=== PATIENT | female | born 1945 | race Caucasian/White ===

== ENCOUNTER → 2016-05-22 | Outpatient (CLI) | payer OTHER ==
[~2016-05-22] MED LIST: AMR2 PO; ATOR-24 PO; BYTI10 SQ; DLCSR180 PO; GLC500 PO; INDA1TAB3 PO; SYNUNK; XNX25 PO
--- NOTE | 2016-05-27 10:10 | CODING QUERY MEDICAL NECESSITY ---
SUPPORTING DIAGNOSIS NEEDED A supporting diagnosis is required for the test/procedure performed on this patient in order for us to be reimbursed by the patient's insurance. Please provide a supporting diagnosis for the following test/procedure listed below next to the test name along with your signature. *If there is no additional diagnosis for this patient that would support the following test/procedure please document that below next to the test/procedure. Test(s)/Procedure(s) that require a supporting diagnosis: DOS 05/22 * Hba1c DIAGNOSIS: Provider Signature: Date: Thank you Citlali Chew Health Information Management Once completed, please kindly fax back to [phone] For questions please call [phone]
== END | disposition home or self-care (01) ==
LOC: C.LAB1850 09:35
PROVIDERS: ATTEND Internal Medicine
DX: E78.00 Pure hypercholesterolemia, unspecified (principal); E11.9 Type 2 diabetes mellitus without complications

== ENCOUNTER → 2016-07-23 | Outpatient (CLI) | payer OTHER ==
[2016-07-23 09:38] LABS: BASO % 0.5 %; BASO ABS # 0.03 K/uL (0-0.2); COMPLETE YES; EOS % 3.4 %; LYMPH % 30.7 %; LYMPH ABS # 1.69 K/uL (1.2-3.4); MEAN CORPUSCULAR HEMOGLOBIN 29.7 pg (25-34); MEAN CORPUSCULAR HGB CONC 33.3 g/dl (32-36); MEAN PLATELET VOLUME 10.8 fL (7.4-10.4); MONO % 9.4 %; PLATELET COUNT 261 K/uL (130-400); RED BLOOD COUNT 4.72 M/uL (4.2-5.4); WHITE BLOOD COUNT 5.51 K/uL (4.8-10.8)
[2016-07-23 09:57] LABS: ALT/SGPT 20 U/L (12-78); AST/SGOT 19 U/L (15-37); BLOOD UREA NITROGEN 12 mg/dl (7-18); BUN/CREATININE RATIO 15.9 (10-20); CALCIUM 9.8 mg/dl (8.5-10.1); CARBON DIOXIDE 29 mmol/L (21-32); CHLORIDE 107 mmol/L (98-107); CHOLESTEROL 118 mg/dl (0-200); CREATININE 0.76 mg/dl (0.60-1.20); GLUCOSE 138 mg/dl (70-99); POTASSIUM 3.7 mmol/L (3.5-5.1); SODIUM 142 mmol/L (136-145)
[2016-07-23 09:58] LABS: ESTIMATED AVERAGE GLUCOSE 148 mg/dl; HA1C FLAG Normal (Normal)
[2016-07-23 10:07] LABS: HDL CHOLESTEROL 40 mg/dl; LDL CHOLESTEROL CALCULATED 46 mg/dl; TRIGLYCERIDES 158 mg/dl (0-150); VERY LOW DENSITY LIPOPROT CALC 32 mg/dl
[2016-07-23 10:23] LABS: RATIO 10.1 mcg/mg (0-30.0)
--- NOTE | 2016-07-30 08:31 | CODING QUERY MEDICAL NECESSITY ---
SUPPORTING DIAGNOSIS NEEDED A supporting diagnosis is required for the test/procedure performed on this patient in order for us to be reimbursed by the patient's insurance. Please provide a supporting diagnosis for the following test/procedure listed below next to the test name along with your signature. *If there is no additional diagnosis for this patient that would support the following test/procedure please document that below next to the test/procedure. Test(s)/Procedure(s) that require a supporting diagnosis: * GLYCATED HEMOGLOBIN DIAGNOSIS: * DOS: 07/23/16 Provider Signature: Date: Thank you Verónica Ruiz Health Information Management Once completed, please kindly fax back to [phone] For questions please call [phone]
== END | disposition home or self-care (01) ==
LOC: C.LAB1850 08:16
PROVIDERS: ATTEND Internal Medicine
DX: E78.00 Pure hypercholesterolemia, unspecified (principal); E11.9 Type 2 diabetes mellitus without complications

== ENCOUNTER → 2016-10-30 | Outpatient (CLI) | payer OTHER ==
[2016-10-30 14:01] LABS: ESTIMATED AVERAGE GLUCOSE 157 mg/dl; HA1C FLAG Normal (Normal)
== END | disposition home or self-care (01) ==
LOC: C.LAB1850 11:36
PROVIDERS: ATTEND Internal Medicine
DX: E11.9 Type 2 diabetes mellitus without complications (principal)

== ENCOUNTER → 2017-04-29 | Outpatient (CLI) | payer OTHER ==
[2017-04-29 09:36] LABS: BASO % 0.5 %; BASO ABS # 0.03 K/uL (0-0.2); EOS % 4.5 %; EOS ABS # 0.28 K/uL (0-0.5); HEMATOCRIT 43.4 % (37-47); HEMOGLOBIN 14.3 g/dL (12.0-16.0); IG# 0.02 K/uL (0.00-0.02); LYMPH % 32.6 %; LYMPH ABS # 2.03 K/uL (1.2-3.4); MEAN CORPUSCULAR HGB CONC 32.9 g/dl (32-36); MEAN PLATELET VOLUME 11.2 fL (7.4-10.4); MONO ABS # 0.56 K/uL (0.11-0.59); NEUT % 53.1 %; PLATELET COUNT 246 K/uL (130-400); RED CELL DISTRIBUTION WIDTH CV 13.2 % (11.5-14.5); RED CELL DISTRIBUTION WIDTH SD 43.7 fL (36.4-46.3); WHITE BLOOD COUNT 6.22 K/uL (4.8-10.8)
[2017-04-29 09:48] LABS: HEMOGLOBIN A1C 10.4 % (4.5-5.6)
[2017-04-29 10:07] LABS: CREATININE RANDOM URINE 61.9 mg/dl
[2017-04-29 10:09] LABS: ALT/SGPT 19 U/L (12-78); AST/SGOT 11 U/L (15-37); BLOOD UREA NITROGEN 15 mg/dl (7-18); CALCIUM 9.1 mg/dl (8.5-10.1); CARBON DIOXIDE 28 mmol/L (21-32); CREATININE 0.76 mg/dl (0.60-1.20); GLUCOSE 195 mg/dl (70-99); POTASSIUM 3.4 mmol/L (3.5-5.1); SODIUM 139 mmol/L (136-145)
[2017-04-29 10:21] LABS: CHOLESTEROL 125 mg/dl (0-200); LDL CHOLESTEROL CALCULATED 40 mg/dl
== END | disposition home or self-care (01) ==
LOC: C.LAB1850 08:32
PROVIDERS: ATTEND Internal Medicine
DX: E11.9 Type 2 diabetes mellitus without complications (principal)

== ENCOUNTER → 2017-08-19 | Outpatient (CLI) | payer OTHER ==
[2017-08-19 12:48] LABS: HEMOGLOBIN A1C 9.7 % (4.5-5.6)
== END | disposition home or self-care (01) ==
LOC: C.LAB1850 10:16
PROVIDERS: ATTEND Internal Medicine
DX: E11.9 Type 2 diabetes mellitus without complications (principal)

== ENCOUNTER 2018-06-03 09:07 | Observation (INO) ==
[2018-06-03] MEDS ORDERED: SODIUM CHLORIDE 0.9% 1000ML 1,000 ML IV SCH (09:30)
[2018-06-03 09:40] LABS: Basophils # (auto) 0.02 K/uL (0-0.2); Basophils % (auto) 0.2 %; Eosinophils % (auto) 7.5 %; Hematocrit (blood only) 45.3 % (37-47); Hemoglobin 15.5 g/dL (12.0-16.0); Immature Granulocytes # (auto) 0.03 K/uL (0.00-0.02); Immature Granulocytes % (auto) 0.3 %; Lymphocytes # (auto) 2.24 K/uL (1.2-3.4); Lymphocytes % (auto) 23.9 %; Mean Corpuscular Hgb Conc 34.2 g/dL (32-36); Mean Corpuscular Volume 89.3 fL (80-100); Mean Platelet Volume 11.1 fL (7.4-10.4); Monocytes # (auto) 0.55 K/uL (0.11-0.59); Monocytes % (auto) 5.9 %; Neutrophils # (auto) 5.85 K/uL (1.4-6.5); Neutrophils % (auto) 62.2 %; Platelet Count 282 K/uL (130-400); RDW Coefficient of Variation 13.2 % (11.5-14.5); Red Blood Count 5.07 M/uL (4.2-5.4); White Blood Count 9.39 K/uL (4.8-10.8)
--- NOTE | 2018-06-03 09:40 | XRay Report ---
XR chest 1V portable CLINICAL HISTORY: Epigastric pain. COMPARISON STUDY: Chest radiograph June 18, 2009. FINDINGS: No lucency is identified under the hemidiaphragms to suggest pneumoperitoneum on this exam. An old fracture of the right sixth rib is noted. Lung volumes are slightly diminished. This is uncha nged. There is no consolidation or evidence for pulmonary edema. Cardiomediastinal silhouette is unre markable. IMPRESSION: No acute cardiopulmonary findings. Electronically signed by: Ky Madden M.D. 06/03/2018 9:39 AM
[2018-06-03 09:57] LABS: Alanine Aminotransferase 17 U/L (12-78); Albumin Level 3.8 gm/dl (3.4-5.0); Aspartate Aminotransferase 16 U/L (15-37); Blood Urea Nitrogen 17 mg/dl (7-18); Calcium 9.7 mg/dl (8.5-10.1); Carbon Dioxide 26 mmol/L (21-32); Chloride 102 mmol/L (98-107); Creatinine Clr Calc Pharmacy 57.5 ml/min; Est GFR (African American) 62.3; Est GFR (Non-African American) 53.8; Glucose 230 mg/dl (70-99); Potassium 3.2 mmol/L (3.5-5.1); Sodium 138 mmol/L (136-145)
[2018-06-03 10:01] LABS: Alkaline Phosphatase 135 U/L (45-117); Bilirubin,Total 1.1 mg/dl (0.2-1); Globulin 3.8 gm/dl (2.5-4.0); Total Protein 7.6 gm/dl (6.4-8.2); Troponin I < 0.015 ng/ml (0-0.045)
--- NOTE | 2018-06-03 10:48 | Ultrasound Report ---
US gallbladder CLINICAL HISTORY: 72 years-old Female presenting with RUQ pain. TECHNIQUE: Real-time grayscale and limited color Doppler ultrasound imaging of the abdomen limited to the right upper quadrant was performed. COMPARISON: None. FINDINGS: Pancreas: Visualized portions of the pancreatic head and body normal. Liver: Normal echogenicity and echotexture. No sonographic evidence of hepatic mass. Main portal vein patent with normal directional flow. Biliary: No intrahepatic biliary ductal dilatation. Common bile duct measures up to 5 mm in diameter. Gallbladder: Nonshadowing hyperechogenic focus along the gallbladder wall, which is linear/laminar an d measures 10 mm. This is nonmobile. No evidence of gallstones, gallbladder wall thickening, gallblad vera distention, or pericholecystic fluid or inflammatory change. Right kidney: Simple cysts, the largest measuring 2.7 cm. No hydronephrosis. Ascites: None. Other: None. IMPRESSION: 1. No cholelithiasis or biliary ductal dilatation. 2. 10 mm cholesterol polyp or adherent gallbladder sludge. Electronically signed by: Dontae Her M.D. 06/03/2018 10:47 AM
[2018-06-03] MEDS ORDERED: NovoLIN-R INSULIN PER UNIT CHARGE SC STA (11:13)
[2018-06-03 13:10] LABS: Appearance Urine Clear (Clear); Bilirubin Urine Negative (Negative); Color Urine Yellow; Glucose Urine UA Negative (Negative); Ketones Urine Negative (Negative); Leukocyte Esterase Urine Negative (Negative); Nitrite Urine Negative (Negative); Protein Urine Negative (Negative); Specific Gravity Urine 1.011 (1.000-1.030); Urobilinogen Urine Negative (Negative)
[2018-06-03] MEDS ORDERED: cefOXitin 2,000 MG in DEXTROSE 5% 50 ML IV STA (13:44)
[2018-06-03] MEDS ORDERED: MoRPHine SULFATE 4 MG/ML 1 ML CARP\\VIAL IV PRN (13:44)
[2018-06-03] MEDS ORDERED: MoRPHine SULFATE 2 MG/ML CARP IV PRN (13:44)
--- NOTE | 2018-06-03 13:55 | History & Physical Report ---
Date of Service June 03, 2018 Assessment & Plan (1) Biliary colic: The ER physician and I feel patient is having a very biliary colic And likely has chronic cholecystitis. I have discussed with the patient Laparoscopic cholecystectomy with possible open cholecystectomy. Patient does understand potential complications as noted on the consent form. She does wish to proceed History of Present Illness Primary Care Provider: Jarrod Rodriguez MD pt with eipigastric abdominal pain and associated nausea she has had no vomiting She underwent ultrasound which did not show any stone but there are changes which may be Consistent with sludge. He does have right upper quadrant tenderness which is relatively isolated. Her alkaline phosphatase is mildly elevated other LFTs normal Allergies Allergy/AdvReac Type Severity Reaction Status Date / Time No Known Allergies Verified 06/03/18 09:28 Home Medications Home Medications Medication Instructions Recorded Confirmed Type alprazolam 0.25 mg PO TID 06/03/18 06/03/18 History atorvastatin [Lipitor] 40 mg PO PM 06/03/18 06/03/18 History diltiazem HCl 240 mg PO QAM 06/03/18 06/03/18 History glimepiride [Amaryl] 4 mg PO AMPM 06/03/18 06/03/18 History levothyroxine 150 mcg PO QAM 06/03/18 06/03/18 History liraglutide [Victoza 3-Nav] 1 dose SUBCUT DIRECTED 06/03/18 06/03/18 History metformin 1,000 mg PO AMPM 06/03/18 06/03/18 History Past Med/Surg History Medical History Diabetes (Chronic) H/O: hysterectomy (Resolved) Social History Feels Safe at Home: Yes Preferred Language: Kazakh Physical Exam 2 Vital Signs (Past 24 Hours): Last Vital Signs Temp 36.4 C L 06/03/18 09:09 Pulse 66 06/03/18 12:15 Resp 16 06/03/18 12:15 BP 144/74 H 06/03/18 12:15 Pulse Ox 97 06/03/18 12:15 On examination her HEENT exam is grossly normal sclera are anicteric Head is atraumatic neck is supple she is in no respiratory distress or shortness of breath Her heart shows regular rate and rhythm skin is warm and dry Abdomen is soft but she does have upper quadrant tenderness to palpation and also on ultrasound with the probe He does not have any rashes Results & Data Medications Administered Sodium Chloride (Nss 1000ml) 1,000 mls @ 125 mls/hr IV .Q8H NAVJOT Stop: 06/03/18 17:29 Last Admin: 06/03/18 10:03 Dose: 125 mls/hr
--- NOTE | 2018-06-03 15:15 | Anesthesiology Consultation ---
Date of Service June 03, 2018 Assessment & Plan (1) Encounter for pre-operative examination: Chart Review Chart Review: Acceptable Risk for Surgery Consults Requested none NPO Date Last Intake of Fluids: 06/03/18 Time Last Intake of Fluids: 07:30 Date Last Intake of Solids: 06/03/18 Time Last Intake of Solids: 07:30 History Surgery Operation Date: 06/03/18 10:55 Proposed Procedures p Laparoscopic Cholecystectomy - Ludwin Vidal MD, FACS Height/Weight Height: 5 ft 7 in Weight: 90.4 kg Allergies Allergy/AdvReac Type Severity Reaction Status Date / Time No Known Allergies Verified 06/03/18 09:28 Medications Home Medications Medication Instructions Recorded Confirmed Last Taken alprazolam 0.25 mg PO TID 06/03/18 06/03/18 Unknown atorvastatin [Lipitor] 40 mg PO PM 06/03/18 06/03/18 Unknown diltiazem HCl 240 mg PO QAM 06/03/18 06/03/18 Unknown glimepiride [Amaryl] 4 mg PO AMPM 06/03/18 06/03/18 Unknown levothyroxine 150 mcg PO QAM 06/03/18 06/03/18 Unknown liraglutide [Victoza 3-Anv] 1 dose SUBCUT DIRECTED 06/03/18 06/03/18 Unknown metformin 1,000 mg PO AMPM 06/03/18 06/03/18 Unknown Active Medications Generic Name Dose Route Start Last Admin Trade Name Freq PRN Reason Stop Dose Admin Sodium Chloride 1,000 mls @ 125 mls/hr 06/03/18 09:30 06/03/18 10:03 Nss 1000ml IV 06/03/18 17:29 125 mls/hr .Q8H NAVJOT Administration Morphine Sulfate 4 mg 06/03/18 13:44 06/03/18 14:06 Morphine Sulfate IV 06/17/18 13:43 4 mg 3XQ2H PRN Administration Pain Past Medical History Medical History Diabetes (Chronic) H/O: hysterectomy (Resolved) Social History Smoking Status: Never smoker Do You Dip or Chew Tobacco: No Hx Alcohol Use: No Hx Substance Use: No Physical Exam Vital Signs Last Vital Signs Temp 36.7 C 06/03/18 15:12 Pulse 63 06/03/18 15:12 Resp 16 06/03/18 15:12 BP 109/65 06/03/18 15:12 Pulse Ox 95 06/03/18 15:12 Testing Laboratory Results 06/03/18 09:30 06/03/18 09:30 Urine Color Yellow 06/03/18 12:30 Urine Appearance Clear (Clear) 06/03/18 12:30 Urine pH 5.0 (4.5-7.5) 06/03/18 12:30 Ur Specific [place] 1.011 (1.000-1.030) 06/03/18 12:30 Urine Protein Negative (Negative) 06/03/18 12:30 Urine Glucose (UA) Negative (Negative) 06/03/18 12:30 Urine Ketones Negative (Negative) 06/03/18 12:30 Urine Nitrite Negative (Negative) 06/03/18 12:30 Ur Leukocyte Esterase Negative (Negative) 06/03/18 12:30 06/03/18 11:22 POC Glucose 136 H
[2018-06-03] MEDS ORDERED: fentaNYL citrate 100 MCG/2 ML VIAL ONE ×2 (15:16→16:54)
[2018-06-03] MEDS ORDERED: MIDAZOLAM HCL 1 MG/ML 2ML VIAL ONE (15:16)
[2018-06-03] MEDS ORDERED: ePHEDrine sulfate 50 MG/ML AMP IV PRN (15:26)
[2018-06-03] MEDS ORDERED: ONDANSETRON INJ 2 MG/ML 2 ML VIAL IV PRN ×2 (15:26→17:52)
[2018-06-03] MEDS ORDERED: BUPIVACAINE 0.5 % 5 MG/1 ML MPF 30ML VIAL ONE (15:26)
[2018-06-03] MEDS ORDERED: ATROPINE SULFATE 0.1 MG/ML 10ML SYR IV PRN (15:26)
[2018-06-03] MEDS ORDERED: HYDROmorphone INJ 2 MG/ML SYR/VIAL IV PRN (15:26)
[2018-06-03] MEDS ORDERED: KETOROLAC TROMETHAMINE 15 MG/ML VIAL IV PRN (15:26)
--- NOTE | 2018-06-03 15:34 | Emergency Department Note ---
Entered by Mackenzie Breen acting as a scribe for History of Present Illness General Chief complaint: Chest Pain Stated complaint: CHEST AND BACK PAIN Source: patient History of Present Illness Provider complaint: chest pain Onset (ago): week(s) 1 Location: chest Pain Consistency: + intermittent Current Pain Intensity: 0 Quality: + other (pain) Exacerbated By: + eating Associated symptoms: + diaphoresis; no nausea/vomiting (nausea, no vomiting) The patient is a 72 year old female who presents to the Emergency Room with complaints of intermittent chest pain beginning 1 week ago. The patient states that her pain 1 week ago radiated down to her stomach and back. She states that she is nauseous and reports that eating exacerbates her pain. She reports that she was intermittently sweaty but denies vomiting. The patient states that she was drinking coffee 1 week ago when her pain began. She states that last night she ate chicken, peas, and mashed potatoes. She reports that this morning she ate half of a bagel with peanut butter and had the pain again. The patient states that she is diabetic and states that her sugars have been running high lately. She denies having the chest discomfort currently. She reports a history of a stress test and a hysterectomy done in 2009. Home Medications Home Medications Medication Instructions Recorded Confirmed Type alprazolam 0.25 mg PO TID 06/03/18 06/03/18 History atorvastatin [Lipitor] 40 mg PO PM 06/03/18 06/03/18 History diltiazem HCl 240 mg PO QAM 06/03/18 06/03/18 History glimepiride [Amaryl] 4 mg PO AMPM 06/03/18 06/03/18 History levothyroxine 150 mcg PO QAM 06/03/18 06/03/18 History liraglutide 1 dose SUBCUT DIRECTED 06/03/18 06/03/18 History metformin 1,000 mg PO AMPM 06/03/18 06/03/18 History hydrocodone-acetaminophen [[place]] 1 - 2 tab PO Q6H #30 tab 06/04/18 Rx Allergies Allergy/AdvReac Type Severity Reaction Status Date / Time No Known Allergies Verified 06/03/18 09:28 Past Med/Surg History Medical History Diabetes (Chronic) H/O: hysterectomy (Resolved) Social History Current Living Situation: Spouse Other Information That Helps Us Care for You: No Feels Safe at Home: Yes Safety Concerns: Feels Safe At This Time Smoking Status: Never smoker Do You Dip or Chew Tobacco: No Hx Alcohol Use: No Hx Substance Use: No Beliefs That Will Affect Care: None Preferred Language: [place] Review of Systems See HPI for pertinent positives & negatives. and A total of 10 systems reviewed and were otherwise negative Physical Exam Vital Signs Vital Signs - 24 hr 06/03/18 17:00 06/03/18 17:01 06/03/18 17:05 Temperature Temperature Source Pulse Rate 61 59 L 58 L Pulse Rate [Apical] Pulse Rate [Left] Pulse Rhythm [Apical] Pulse Rhythm [Left] Pulse Strength [Apical] Pulse Strength [Left] Respiratory Rate 15 15 13 Respiratory Effort / Characteristics Respiratory Depth Respiratory Pattern Blood Pressure 189/71 H Blood Pressure [Left Arm] Blood Pressure Mean 110 Blood Pressure Mean [Left Arm] Blood Pressure Position [Left Arm] Pulse Oximetry 99 99 99 Oxygen Delivery Method Oxygen Flow Rate 06/03/18 17:06 06/03/18 17:10 06/03/18 17:15 Temperature Temperature Source Pulse Rate 58 L 59 L 61 Pulse Rate [Apical] Pulse Rate [Left] Pulse Rhythm [Apical] Pulse Rhythm [Left] Pulse Strength [Apical] Pulse Strength [Left] Respiratory Rate 15 12 14 Respiratory Effort / Characteristics Respiratory Depth Respiratory Pattern Blood Pressure 169/64 H 168/70 H Blood Pressure [Left Arm] Blood Pressure Mean 99 102 Blood Pressure Mean [Left Arm] Blood Pressure Position [Left Arm] Pulse Oximetry 99 99 98 Oxygen Delivery Method Oxygen Flow Rate 06/03/18 17:16 06/03/18 17:20 06/03/18 17:25 Temperature Temperature Source Pulse Rate 61 61 67 Pulse Rate [Apical] Pulse Rate [Left] Pulse Rhythm [Apical] Pulse Rhythm [Left] Pulse Strength [Apical] Pulse Strength [Left] Respiratory Rate 14 14 14 Respiratory Effort / Characteristics Respiratory Depth Respiratory Pattern Blood Pressure 164/66 H 159/66 H Blood Pressure [Left Arm] Blood Pressure Mean 98 97 Blood Pressure Mean [Left Arm] Blood Pressure Position [Left Arm] Pulse Oximetry 97 99 98 Oxygen Delivery Method Oxygen Flow Rate 06/03/18 17:26 06/03/18 17:30 06/03/18 17:35 Temperature 36.5 C Temperature Source Temporal Artery Scan Pulse Rate 72 73 Pulse Rate [Apical] Pulse Rate [Left] Pulse Rhythm [Apical] Pulse Rhythm [Left] Pulse Strength [Apical] Pulse Strength [Left] Respiratory Rate 13 14 Respiratory Effort / Characteristics Respiratory Depth Respiratory Pattern Blood Pressure 151/65 H Blood Pressure [Left Arm] Blood Pressure Mean 93 Blood Pressure Mean [Left Arm] Blood Pressure Position [Left Arm] Pulse Oximetry 98 96 96 Oxygen Delivery Method Nasal Cannula Oxygen Flow Rate 2 06/03/18 17:40 06/03/18 17:45 06/03/18 18:17 Temperature 36.5 C 36.5 C Temperature Source Oral Oral Pulse Rate 74 Pulse Rate [Apical] Pulse Rate [Left] 74 67 Pulse Rhythm [Apical] Pulse Rhythm [Left] Pulse Strength [Apical] Pulse Strength [Left] Respiratory Rate 18 16 17 Respiratory Effort / Characteristics Non-Labored Spontaneous Respiratory Depth Normal Normal Respiratory Pattern Regular Blood Pressure Blood Pressure [Left Arm] 118/73 132/81 Blood Pressure Mean Blood Pressure Mean [Left Arm] 88 98 Blood Pressure Position [Left Arm] Lying Lying Pulse Oximetry 95 91 98 Oxygen Delivery Method Nasal Cannula Nasal Cannula Oxygen Flow Rate 2 2 06/03/18 18:45 06/03/18 19:45 06/03/18 20:49 Temperature 36.6 C 36.9 C 36.6 C Temperature Source Oral Oral Oral Pulse Rate Pulse Rate [Apical] 66 Pulse Rate [Left] 75 97 H Pulse Rhythm [Apical] Regular Pulse Rhythm [Left] Pulse Strength [Apical] Normal Pulse Strength [Left] Respiratory Rate 18 17 17 Respiratory Effort / Characteristics Non-Labored Respiratory Depth Normal Normal Normal Respiratory Pattern Regular Blood Pressure Blood Pressure [Left Arm] 132/81 141/84 H 123/81 Blood Pressure Mean Blood Pressure Mean [Left Arm] 98 103 95 Blood Pressure Position [Left Arm] Lying Lying Lying Pulse Oximetry 98 94 93 Oxygen Delivery Method Nasal Cannula Room Air Room Air Oxygen Flow Rate 2 06/03/18 23:23 06/04/18 03:23 06/04/18 07:40 Temperature 36.5 C 36.6 C 36.7 C Temperature Source Oral Oral Oral Pulse Rate Pulse Rate [Apical] 70 Pulse Rate [Left] 88 89 Pulse Rhythm [Apical] Regular Pulse Rhythm [Left] Regular Regular Pulse Strength [Apical] Normal Pulse Strength [Left] Normal Normal Respiratory Rate 16 16 16 Respiratory Effort / Characteristics Non-Labored Spontaneous Respiratory Depth Normal Normal Normal Respiratory Pattern Regular Blood Pressure Blood Pressure [Left Arm] 113/71 126/79 160/100 H Blood Pressure Mean Blood Pressure Mean [Left Arm] 85 94 120 Blood Pressure Position [Left Arm] Lying Lying Lying Pulse Oximetry 93 94 93 Oxygen Delivery Method Room Air Room Air Room Air Oxygen Flow Rate 06/04/18 07:48 06/04/18 09:49 Temperature 36.7 C Temperature Source Pulse Rate Pulse Rate [Apical] 70 Pulse Rate [Left] 89 Pulse Rhythm [Apical] Pulse Rhythm [Left] Pulse Strength [Apical] Pulse Strength [Left] Respiratory Rate 16 Respiratory Effort / Characteristics Non-Labored Spontaneous Respiratory Depth Normal Respiratory Pattern Regular Blood Pressure Blood Pressure [Left Arm] 160/100 H Blood Pressure Mean Blood Pressure Mean [Left Arm] Blood Pressure Position [Left Arm] Pulse Oximetry 93 Oxygen Delivery Method Room Air Oxygen Flow Rate Vital signs reviewed. General: Well-appearing female, in no significant distress. HEENT: No scleral icterus, PERRLA, neck supple. Atraumatic. Cardiovascular: Regular rate and rhythm, no extra sounds. Pulmonary: Clear to auscultation bilaterally, normal work of breathing. Abdomen: Soft, tender to the epigastric region, nondistended, positive bowel sounds. Musculoskeletal: Atraumatic, no peripheral edema. Neurologic: Patient awake alert and oriented x 3, Skin: Warm, dry, no rash Course 0923: Past medical records reviewed. The patient was evaluated in room A9B, and a complete history and physical examination were performed. 1250: I updated the patient. 1331: I discussed the patient's case with Dr. Stephy Castellanos who said that he will see the patient. 1335: I updated the patient. She will be further evaluated by Dr. Vidal. The patient verbalized agreement and understanding of the treatment plan. Consultations Consultation #1: Dr. Stephy Castellanos Time: 13:31 Administered Medications Discontinued Medications Hydrocodone Bitart/Acetaminophen ([place] 5/325) 1 tab PO [id number] PRN PRN Reason: Pain Stop: 06/17/18 17:51 Last Admin: 06/04/18 05:38 Dose: 1 tab Admin: 06/04/18 00:02 Dose: 1 tab Atorvastatin Calcium (Lipitor) 40 mg PO PM NAVJOT Stop: 07/03/18 20:59 Last Admin: 06/03/18 21:04 Dose: 40 mg Bupivacaine HCl (Marcaine 0.5% Mpf) Confirm Administered Dose 30 ml .ROUTE .STK- MED ONE Stop: 06/03/18 15:27 Last Admin: 06/03/18 16:14 Dose: 9 ml Diltiazem HCl (Cardizem Cd) 240 mg PO QAM NAVJOT Stop: 07/04/18 08:59 Last Admin: 06/04/18 09:01 Dose: 240 mg Fentanyl Citrate (Fentanyl Citrate) 25 mcg IV Q5M PRN PRN Reason: PACU Use Only-Pain Stop: 06/03/18 20:26 Last Admin: 06/03/18 17:17 Dose: 25 mcg Admin: 06/03/18 17:09 Dose: 25 mcg Admin: 06/03/18 17:03 Dose: 25 mcg Admin: 06/03/18 16:57 Dose: 25 mcg Heparin Sodium (Porcine) (Heparin Sodium (Porcine)) 5,000 units SQ Q12 NAVJOT Stop: 07/04/18 08:59 Last Admin: 06/04/18 09:01 Dose: Not Given Sodium Chloride (Nss 1000ml) 1,000 mls @ 125 mls/hr IV .Q8H NAVJOT Stop: 06/03/18 17:29 Last Infusion: 06/03/18 18:06 Dose: 0 mls/hr Admin: 06/03/18 10:03 Dose: 125 mls/hr Cefoxitin Sodium 2,000 mg/ (Dextrose) 70 mls @ 100 mls/hr IV NOW STA Stop: 06/03/18 14:25 Last Infusion: 06/03/18 16:08 Dose: 0 mls/hr Admin: 06/03/18 15:26 Dose: 100 mls/hr Acetaminophen (Ofirmev) 1,000 mg in 100 mls @ 400 mls/hr IV NOW ONE Stop: 06/03/18 16:44 Last Admin: 06/03/18 18:59 Dose: Not Given Cefoxitin Sodium 1,000 mg/ (Dextrose) 60 mls @ 100 mls/hr IV Q8H [facility]JOT Stop: 06/13/18 21:59 Last Infusion: 06/04/18 06:07 Dose: 0 mls/hr Admin: 06/04/18 05:31 Dose: 100 mls/hr Infusion: 06/03/18 21:50 Dose: 0 mls/hr Admin: 06/03/18 21:05 Dose: 100 mls/hr Sodium Chloride (Nss 1000ml) 1,000 mls @ 80 mls/hr IV .[id number] [facility] Stop: 07/03/18 18:59 Last Admin: 06/04/18 09:02 Dose: Not Given Infusion: 06/04/18 06:12 Dose: 80 mls/hr Infusion: 06/03/18 22:32 Dose: 80 mls/hr Admin: 06/03/18 21:04 Dose: 80 mls/hr Insulin Aspart (Novolog Flexpen) 0 units SC ACHS [facility] Stop: 07/03/18 20:59 Last Admin: 06/04/18 08:57 Dose: 4 units Admin: 06/03/18 21:18 Dose: 2 units Insulin Human Regular (Novolin R U-100 Per Unit) 4 units SC NOW [facility] Stop: 06/03/18 11:14 Last Admin: 06/03/18 11:25 Dose: Not Given Levothyroxine Sodium (Synthroid) 150 mcg PO DAILYBB [facility] Stop: 07/04/18 06:29 Last Admin: 06/04/18 05:31 Dose: 150 mcg Morphine Sulfate (Morphine Sulfate) 4 mg IV 3XQ2H PRN PRN Reason: Pain Stop: 06/17/18 13:43 Last Admin: 06/03/18 14:06 Dose: 4 mg Pneumococcal Polyvalent Vaccine (Pneumovax-23) 25 mcg IM .ONCE ONE Stop: 06/03/18 16:31 Last Admin: 06/03/18 19:30 Dose: Not Given Pneumococcal Polyvalent Vaccine (Pneumovax-23) 25 mcg IM .ONCE ONE Stop: 06/04/18 08:01 Last Admin: 06/04/18 09:02 Dose: Not Given Medical Decision Making Differential Diagnosis Differential diagnosis: Etiologies such as ACS, biliary colic, cholecystitis, hepatitis, perihepatitis, pancreatitis, cardiac disease, pancreatitis, gastritis, peptic ulcer disease, appendicitis, ovarian cyst, ovarian torsion, ectopic , pelvic inflammatory disease, cystitis, diverticulitis, mesenteric ischemia, inflammatory bowel disease, ileus, bowel obstruction, aortic pathology, shingles , as well as others were considered. Medical Records Attestation: I reviewed the patient's medical records. Home Medications Current Medication List: was personally reviewed by me Laboratory Data Attestation: I reviewed the patient's lab results. Result diagrams: 06/04/18 05:50 06/04/18 05:50 Lab Results 06/03/18 06/03/18 06/03/18 Range/Units 09:30 09:30 09:30 WBC 9.39 (4.8-10.8) K/uL RBC 5.07 (4.2-5.4) M/uL Hgb 15.5 (12.0-16.0) g/dL Hct 45.3 (37-47) % MCV 89.3 (80-100) fL MCH 30.6 (25-34) pg MCHC 34.2 (32-36) g/dL RDW Std Deviation 43.0 (36.4-46.3) fL RDW Coeff of Her[place] 13.2 (11.5-14.5) % Plt Count 282 (130-400) K/uL MPV 11.1 H (7.4-10.4) fL Immature Gran % (Auto) 0.3 % Neut % (Auto) 62.2 % Lymph % (Auto) 23.9 % [place] % (Auto) 5.9 % Eos % (Auto) 7.5 % Baso % (Auto) 0.2 % Immature Gran # (Auto) 0.03 H (0.00-0.02) K/uL Neut # (Auto) 5.85 (1.4-6.5) K/uL Lymph # (Auto) 2.24 (1.2-3.4) K/uL [place] # (Auto) 0.55 (0.11-0.59) K/uL Eos # (Auto) 0.70 H (0-0.5) K/uL Baso # (Auto) 0.02 (0-0.2) K/uL PT (9.0-12.0) Seconds INR (0.9-1.1) Sodium 138 (136-145) mmol/L Potassium 3.2 L (3.5-5.1) mmol/L Chloride 102 (98-107) mmol/L Carbon Dioxide 26 (21-32) mmol/L Anion Gap 10.0 (3-11) BUN 17 (7-18) mg/dl Creatinine 1.05 (0.6-1.2) mg/dl Est Cr Clr Drug Dosing 57.5 ml/min Est GFR ( Amer) 62.3 Est GFR (Non-Af Amer) 53.8 BUN/Creatinine Ratio 16.0 (10-20) Glucose 230 H (70-99) mg/dl POC Glucose (70-99) Estimat Average Glucose mg/dl Hemoglobin A1c (4.5-5.6) % Calcium 9.7 (8.5-10.1) mg/dl Phosphorus (2.5-4.9) mg/dl Total Bilirubin 1.1 H (0.2-1) mg/dl Direct Bilirubin (0-0.2) mg/dl AST 16 (15-37) U/L ALT 17 (12-78) U/L Alkaline Phosphatase 135 H (45-117) U/L Troponin I < 0.015 Cancelled (0-0.045) ng/ml Total Protein 7.6 (6.4-8.2) gm/dl Albumin 3.8 (3.4-5.0) gm/dl Globulin 3.8 (2.5-4.0) gm/dl Albumin/Globulin Ratio 1.0 (0.9-2) Lipase 183 (73-393) U/L Urine Color Urine Appearance (Clear) Urine pH (4.5-7.5) Ur Specific [place] (1.000-1.030) Urine Protein (Negative) Urine Glucose (UA) (Negative) Urine Ketones (Negative) Urine Blood (Negative) Urine Nitrite (Negative) Urine Bilirubin (Negative) Urine Urobilinogen (Negative) Ur Leukocyte Esterase (Negative) 06/03/18 06/03/18 06/03/18 Range/Units 11:22 12:30 16:43 WBC (4.8-10.8) K/uL RBC (4.2-5.4) M/uL Hgb (12.0-16.0) g/dL Hct (37-47) % MCV (80-100) fL MCH (25-34) pg MCHC (32-36) g/dL RDW Std Deviation (36.4-46.3) fL RDW Coeff of [place] (11.5-14.5) % Plt Count (130-400) K/uL MPV (7.4-10.4) fL Immature Gran % (Auto) % Neut % (Auto) % Lymph % (Auto) % [place] % (Auto) % Eos % (Auto) % Baso % (Auto) % Immature Gran # (Auto) (0.00-0.02) K/uL Neut # (Auto) (1.4-6.5) K/uL Lymph # (Auto) (1.2-3.4) K/uL [place] # (Auto) (0.11-0.59) K/uL Eos # (Auto) (0-0.5) K/uL Baso # (Auto) (0-0.2) K/uL PT (9.0-12.0) Seconds INR (0.9-1.1) Sodium (136-145) mmol/L Potassium (3.5-5.1) mmol/L Chloride (98-107) mmol/L Carbon Dioxide (21-32) mmol/L Anion Gap (3-11) BUN (7-18) mg/dl Creatinine (0.6-1.2) mg/dl Est Cr Clr Drug Dosing ml/min Est GFR ( Amer) Est GFR (Non-Af Amer) BUN/Creatinine Ratio (10-20) Glucose (70-99) mg/dl POC Glucose 136 H 98 (70-99) Estimat Average Glucose mg/dl Hemoglobin A1c (4.5-5.6) % Calcium (8.5-10.1) mg/dl Phosphorus (2.5-4.9) mg/dl Total Bilirubin (0.2-1) mg/dl Direct Bilirubin (0-0.2) mg/dl AST (15-37) U/L ALT (12-78) U/L Alkaline Phosphatase (45-117) U/L Troponin I (0-0.045) ng/ml Total Protein (6.4-8.2) gm/dl Albumin (3.4-5.0) gm/dl Globulin (2.5-4.0) gm/dl Albumin/Globulin Ratio (0.9-2) Lipase (73-393) U/L Urine Color Yellow Urine Appearance Clear (Clear) Urine pH 5.0 (4.5-7.5) Ur Specific [place] 1.011 (1.000-1.030) Urine Protein Negative (Negative) Urine Glucose (UA) Negative (Negative) Urine Ketones Negative (Negative) Urine Blood Negative (Negative) Urine Nitrite Negative (Negative) Urine Bilirubin Negative (Negative) Urine Urobilinogen Negative (Negative) Ur Leukocyte Esterase Negative (Negative) 06/03/18 06/04/18 06/04/18 Range/Units 20:47 05:50 05:50 WBC 9.81 (4.8-10.8) K/uL RBC 4.90 (4.2-5.4) M/uL Hgb 14.7 (12.0-16.0) g/dL Hct 43.7 (37-47) % MCV 89.2 (80-100) fL MCH 30.0 (25-34) pg MCHC 33.6 (32-36) g/dL RDW Std Deviation 43.1 (36.4-46.3) fL RDW Coeff of Herac[place] 13.2 (11.5-14.5) % Plt Count 278 (130-400) K/uL MPV 11.0 H (7.4-10.4) fL Immature Gran % (Auto) 0.2 % Neut % (Auto) 77.1 % Lymph % (Auto) 17.5 % [place] % (Auto) 5.0 % Eos % (Auto) 0.2 % Baso % (Auto) 0.0 % Immature Gran # (Auto) 0.02 (0.00-0.02) K/uL Neut # (Auto) 7.56 H (1.4-6.5) K/uL Lymph # (Auto) 1.72 (1.2-3.4) K/uL [place] # (Auto) 0.49 (0.11-0.59) K/uL Eos # (Auto) 0.02 (0-0.5) K/uL Baso # (Auto) 0.00 (0-0.2) K/uL PT (9.0-12.0) Seconds INR (0.9-1.1) Sodium 138 (136-145) mmol/L Potassium 4.1 D (3.5-5.1) mmol/L Chloride 103 (98-107) mmol/L Carbon Dioxide 27 (21-32) mmol/L Anion Gap 8.0 (3-11) BUN 11 (7-18) mg/dl Creatinine 0.83 (0.6-1.2) mg/dl Est Cr Clr Drug Dosing 72.8 ml/min Est GFR ( Amer) 82.8 Est GFR (Non-Af Amer) 71.4 BUN/Creatinine Ratio 13.5 (10-20) Glucose 186 H (70-99) mg/dl POC Glucose 164 H (70-99) Estimat Average Glucose mg/dl Hemoglobin A1c (4.5-5.6) % Calcium 9.2 (8.5-10.1) mg/dl Phosphorus 3.8 (2.5-4.9) mg/dl Total Bilirubin 1.0 (0.2-1) mg/dl Direct Bilirubin 0.2 (0-0.2) mg/dl AST 34 (15-37) U/L ALT 24 (12-78) U/L Alkaline Phosphatase 125 H (45-117) U/L Troponin I (0-0.045) ng/ml Total Protein 7.1 (6.4-8.2) gm/dl Albumin 3.5 (3.4-5.0) gm/dl Globulin 3.6 (2.5-4.0) gm/dl Albumin/Globulin Ratio 1.0 (0.9-2) Lipase (73-393) U/L Urine Color Urine Appearance (Clear) Urine pH (4.5-7.5) Ur Specific [place] (1.000-1.030) Urine Protein (Negative) Urine Glucose (UA) (Negative) Urine Ketones (Negative) Urine Blood (Negative) Urine Nitrite (Negative) Urine Bilirubin (Negative) Urine Urobilinogen (Negative) Ur Leukocyte Esterase (Negative) 06/04/18 06/04/18 06/04/18 Range/Units 05:50 05:50 08:15 WBC (4.8-10.8) K/uL RBC (4.2-5.4) M/uL Hgb (12.0-16.0) g/dL Hct (37-47) % MCV (80-100) fL MCH (25-34) pg MCHC (32-36) g/dL RDW Std Deviation (36.4-46.3) fL RDW Coeff of [place] (11.5-14.5) % Plt Count (130-400) K/uL MPV (7.4-10.4) fL Immature Gran % (Auto) % Neut % (Auto) % Lymph % (Auto) % [place] % (Auto) % Eos % (Auto) % Baso % (Auto) % Immature Gran # (Auto) (0.00-0.02) K/uL Neut # (Auto) (1.4-6.5) K/uL Lymph # (Auto) (1.2-3.4) K/uL [place] # (Auto) (0.11-0.59) K/uL Eos # (Auto) (0-0.5) K/uL Baso # (Auto) (0-0.2) K/uL PT 10.7 (9.0-12.0) Seconds INR 1.1 (0.9-1.1) Sodium (136-145) mmol/L Potassium (3.5-5.1) mmol/L Chloride (98-107) mmol/L Carbon Dioxide (21-32) mmol/L Anion Gap (3-11) BUN (7-18) mg/dl Creatinine (0.6-1.2) mg/dl Est Cr Clr Drug Dosing ml/min Est GFR ( Amer) Est GFR (Non-Af Amer) BUN/Creatinine Ratio (10-20) Glucose (70-99) mg/dl POC Glucose 179 H (70-99) Estimat Average Glucose 166 mg/dl Hemoglobin A1c 7.4 H (4.5-5.6) % Calcium (8.5-10.1) mg/dl Phosphorus (2.5-4.9) mg/dl Total Bilirubin (0.2-1) mg/dl Direct Bilirubin (0-0.2) mg/dl AST (15-37) U/L ALT (12-78) U/L Alkaline Phosphatase (45-117) U/L Troponin I (0-0.045) ng/ml Total Protein (6.4-8.2) gm/dl Albumin (3.4-5.0) gm/dl Globulin (2.5-4.0) gm/dl Albumin/Globulin Ratio (0.9-2) Lipase (73-393) U/L Urine Color Urine Appearance (Clear) Urine pH (4.5-7.5) Ur Specific [place] (1.000-1.030) Urine Protein (Negative) Urine Glucose (UA) (Negative) Urine Ketones (Negative) Urine Blood (Negative) Urine Nitrite (Negative) Urine Bilirubin (Negative) Urine Urobilinogen (Negative) Ur Leukocyte Esterase (Negative) Imaging Data Radiologist's Impression: Radiology results as stated below per my review and the radiologist's interpretation: XR chest 1V portable CLINICAL HISTORY: Epigastric pain. COMPARISON STUDY: Chest radiograph June 18, 2009. FINDINGS: No lucency is identified under the hemidiaphragms to suggest pneumoperitoneum on this exam. An old fracture of the right sixth rib is noted. Lung volumes are slightly diminished. This is unchanged. There is no consolidation or evidence for pulmonary edema. Cardiomediastinal silhouette is unremarkable. IMPRESSION: No acute cardiopulmonary findings. Electronically signed by: Ky Madden M.D. 06/03/2018 9:39 AM US gallbladder CLINICAL HISTORY: 72 years-old Female presenting with RUQ pain. TECHNIQUE: Real-time grayscale and limited color Doppler ultrasound imaging of the abdomen limited to the right upper quadrant was performed. COMPARISON: None. FINDINGS: Pancreas: Visualized portions of the pancreatic head and body normal. Liver: Normal echogenicity and echotexture. No sonographic evidence of hepatic mass. Main portal vein patent with normal directional flow. Biliary: No intrahepatic biliary ductal dilatation. Common bile duct measures up to 5 mm in diameter. Gallbladder: Nonshadowing hyperechogenic focus along the gallbladder wall, which is linear/laminar and measures 10 mm. This is nonmobile. No evidence of gallstones, gallbladder wall thickening, gallbladder distention, or pericholecystic fluid or inflammatory change. Right kidney: Simple cysts, the largest measuring 2.7 cm. No hydronephrosis. Ascites: None. Other: None. IMPRESSION: 1. No cholelithiasis or biliary ductal dilatation. 2. 10 mm cholesterol polyp or adherent gallbladder sludge. Electronically signed by: Dontae Her M.D. 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 IV access was obtained and lab work was drawn. IVF were initiated. PT was placed on the cardiac nurse specialist. She was hydrated with NSS, she declined the need for pain medication. Lab work is reassuring, US reveals sludge, no wall edema. Pt was reassessed and had some increase in pain. SHe is tender to the right of the epigastrium. PT was d/w Dr Vidal of general surgery who will evaluate the pt for further management. She was advised of the plan and agrees. Impression & Plan Acute cholecystitis Discharge Plan Visit Data *Final* Discharge Date/Time: 06/03/18 14:54 Chief Complaint: Chest Pain Stated Complaint: CHEST AND BACK PAIN Other Complaint: Back Injury/Pain ED Provider: Vero Ross Discharge Problem: Acute cholecystitis Patient Disposition: Admitted As Inpatient Discharge Instructions Interventions: ED Discharge Assessment Last Done: 06/03/18 14:54 The scribe's documentation has been prepared under my direction and personally reviewed by me in its entirety. I confirm that the note above accurately reflects all work, treatment, procedures, and medical decision making performed by me.
--- NOTE | 2018-06-03 16:18 | Operative Report ---
Post Operative Report Pre & Post Diagnosis Operation Date: 06/03/18 10:55 Pre-Op Diagnosis: chronic cholecystitis Post-Op Diagnosis: chronic cholecystitis same- w/ acute cholecystitis Procedure Operation Date: 06/03/18 10:55 Actual Procedures p Laparoscopic Cholecystectomy - Ludwin Vidal MD, FACS Surgeon Ludwin Vidal MD, FACS [facility] Estimated Blood Loss 5 Findings Consistent with Post-Op Diagnosis Specimens gallbladder Description of Procedure see dictated note I attest to the content of the Intraoperative Record and any orders documented therein. Any exceptions are noted below.
[2018-06-03] MEDS ORDERED: ACETAMINOPHEN 1,000 MG/100 ML VIAL IV ONE (16:30)
[2018-06-03] MEDS ORDERED: PNEUMOCOCCAL ADMINISTRATION CHARGE ONE (16:30)
[2018-06-03] MEDS ORDERED: PNEUMOCOCCAL POLYSACCHARIDES 25 MCG/0.5 ML VIAL/SYR IM ONE (16:30)
[2018-06-03] MEDS ORDERED: GLYCOPYRROLATE 0.2 MG/ML VIAL ONE (16:41)
[2018-06-03] MEDS ORDERED: PROPOFOL IV EMULSION 10 MG/ML 20 ML VIAL IV ONE (16:41)
[2018-06-03] MEDS ORDERED: LIDOCAINE HCL 2% 2 ML VIAL/AMP(20MG/ML) INFIL ONE (16:41)
[2018-06-03] MEDS ORDERED: ONDANSETRON INJ 2 MG/ML 2 ML VIAL ONE (16:41)
[2018-06-03] MEDS ORDERED: NEOSTIGMINE METHYLSULFATE 5 MG/5 ML SYR ONE (16:41)
[2018-06-03] MEDS ORDERED: ROCURONIUM BROMIDE 10 MG/ML 5 ML VIAL ONE (16:41)
[2018-06-03] MEDS ORDERED: PHENYLEPHRINE HCL 10 MG/ML VIAL ONE (16:41)
[2018-06-03] MEDS ORDERED: DEXAMETHASONE SOD INJ 4 MG/ML VIAL ONE (16:41)
[2018-06-03] MEDS: fentaNYL citrate 100 MCG/2 ML VIAL IV PRN ×4 (16:57→17:17)
[2018-06-03] MEDS ORDERED: HYDROCODONE/ACETAMOPHEN 5/325MG TAB PO PRN (17:52)
[2018-06-03] MEDS ORDERED: PROMETHAZINE HCL 12.5 MG in SODIUM CHLORIDE 0.9% 50 ML IV PRN (17:52)
--- NOTE | 2018-06-03 18:43 | Anesthesiology Progress Note ---
Date of Service June 03, 2018 Anesthesia Post Procedure Vital Signs Vital Signs: Temp Pulse Pulse Pulse Resp BP BP 06/03/18 18:17 36.5 C 67 17 132/81 06/03/18 17:45 36.5 C 74 16 118/73 06/03/18 17:40 74 18 06/03/18 17:35 73 14 06/03/18 17:30 72 13 151/65 H 06/03/18 17:26 36.5 C 06/03/18 17:25 67 14 06/03/18 17:20 61 14 159/66 H 06/03/18 17:16 61 14 164/66 H 06/03/18 17:15 61 14 06/03/18 17:10 59 L 12 168/70 H 06/03/18 17:06 58 L 15 169/64 H 06/03/18 17:05 58 L 13 06/03/18 17:01 59 L 15 189/71 H 06/03/18 17:00 61 15 06/03/18 16:55 66 21 178/84 H 06/03/18 16:51 66 19 189/80 H 06/03/18 16:50 70 17 06/03/18 16:46 68 18 174/79 H 06/03/18 16:45 65 15 06/03/18 16:40 71 19 164/82 H 06/03/18 16:36 36.6 C 77 77 19 151/77 H 151/77 H 06/03/18 15:12 36.7 C 63 16 109/65 06/03/18 14:50 62 14 131/64 06/03/18 12:15 66 16 144/74 H 06/03/18 11:00 06/03/18 10:04 125/79 06/03/18 09:09 36.4 C L 105 H 18 143/81 H Pulse Ox 06/03/18 18:17 98 06/03/18 17:45 91 06/03/18 17:40 95 06/03/18 17:35 96 06/03/18 17:30 96 06/03/18 17:26 98 06/03/18 17:25 98 06/03/18 17:20 99 06/03/18 17:16 97 06/03/18 17:15 98 06/03/18 17:10 99 06/03/18 17:06 99 02/07/19 17:05 99 06/03/18 17:01 99 06/03/18 17:00 99 06/03/18 16:55 100 06/03/18 16:51 100 06/03/18 16:50 100 06/03/18 16:46 100 06/03/18 16:45 100 06/03/18 16:40 100 06/03/18 16:36 99 06/03/18 15:12 95 06/03/18 14:50 96 06/03/18 12:15 97 06/03/18 11:00 97 06/03/18 10:04 06/03/18 09:09 98 Pain Intensity Medial Midsternal: Pain Intensity: 6 Upper Anterior Abdomen: Pain Intensity: 1 Abdomen: Pain Intensity: 4 Notes Mental Status: alert / awake / arousable and participated in evaluation Patient Amnestic to Procedure: Yes Nausea / Vomiting: adequately controlled Pain: adequately controlled Airway Patency, RR, SpO2: stable & adequate BP & HR: stable & adequate Hydration State: stable & adequate Anesthetic Complications: no major complications apparent
--- NOTE | 2018-06-03 18:56 | Operative Report ---
DATE OF OPERATION: 06/03/2018 NAME OF OPERATION: Laparoscopic cholecystectomy. PREOPERATIVE DIAGNOSIS: Chronic cholecystitis. POSTOPERATIVE DIAGNOSIS: Chronic cholelithiasis with acute cholecystitis. STAFF SURGEON: Ludwin Vidal MD VENDING MACHINE ASSEMBLER: Faby Palma PA-C ANESTHESIA: General. DESCRIPTION OF PROCEDURE: The patient was brought in the operating room and placed on the operating table in supine position. Her abdomen was prepped and draped in usual fashion. Pneumatic stockings were placed. We could not place an orogastric tube. My assistant film editor, Faby Palma helped with prepping, draping, removal of the gallbladder and closure of the wounds. Incision was made just above the umbilicus using 0.5% plain Marcaine to anesthetize that incision and then all other incisions. A Veress needle passed, pneumoperitoneum produced. An 11-mm port placed and then under visualization, three 5 mm ports placed, 1 cephalad and 2 laterally. The patient had a very distended, enlarged gallbladder. It was aspirated of bile which seems sludge-like. Dissection was carried out at the francisca hepatis, identifying the cystic duct, which was scarred and then it was clipped and transected. The cystic artery identified, clipped, and transected. The gallbladder then dissected away from the liver bed in the usual fashion, placed in an Endobag. After appropriate irrigation and aspiration and hemostasis, the Endobag was removed through the umbilical site. The umbilical fascia closed using interrupted 0 Vicryl suture, then the skin reapproximated using subcuticular 4-0 Monocryl with Dermabond. The patient was transferred to recovery room in stable condition. I attest to the content of the Intraoperative Record and any orders documented therein. Any exception s are noted below.
[2018-06-03] MEDS ORDERED: CARBOHYDRATES FOR HYPOGLYCEMIA PO PRN (19:21)
[2018-06-03] MEDS ORDERED: GLUCAGON FOR INJ 1 MG VIAL SQ PRN (19:21)
[2018-06-03] MEDS ORDERED: DEXTROSE 50% 50 ML SYRINGE IV PRN (19:21)
[2018-06-03] MEDS ORDERED: GLUCOSE 40% GEL 15 GM TUBE PO PRN (19:21)
[2018-06-03] MEDS ORDERED: GLUCOSE 10 TABS/TUBE PO PRN (19:21)
[2018-06-03] MEDS ORDERED: ATORVASTATIN 40 MG TAB PO SCH (21:00)
[2018-06-03] MEDS: SODIUM CHLORIDE 0.9% 1000ML 1,000 ML IV SCH (21:04)
[2018-06-03] MEDS: INSULIN ASPART 100 UNITS/ML 3 ML PEN SC SCH (21:18)
--- NOTE | 2018-06-03 21:58 | Consultation ---
Date of Consultation June 03, 2018 Assessment & Plan (1) Acute cholecystitis: As per surgery Pre-op Hb 15.5 (2) DM type 2 (diabetes mellitus, type 2): Decreased PO intake Holding PO meds SSI PRN until reliable PO (3) Hypothyroid: continue home meds (4) HTN (hypertension): continue home meds (5) Anxiety: continue home meds (6) DVT prophylaxis: as per surgery History of Present Illness Attending Physician: Ludwin Vidal MD, FACS History of Present Illness 72 y/o F who was admitted on 06/03 s/p lap micha[place] with Dr. Vidal. Pt is doing well post-op. Tolerating PO without issue. Pt denies fever, SOB, chest pain, abd pain, n/v/c/d, LE swelling. Allergies Allergy/AdvReac Type Severity Reaction Status Date / Time No Known Allergies Verified 06/03/18 09:28 Home Medications Home Medications Medication Instructions Recorded Confirmed Type alprazolam 0.25 mg PO TID 06/03/18 06/03/18 History atorvastatin [Lipitor] 40 mg PO PM 06/03/18 06/03/18 History diltiazem HCl 240 mg PO QAM 06/03/18 06/03/18 History glimepiride [Amaryl] 4 mg PO AMPM 06/03/18 06/03/18 History levothyroxine 150 mcg PO QAM 06/03/18 06/03/18 History liraglutide [Victoza 3-Nav] 1 dose SUBCUT DIRECTED 06/03/18 06/03/18 History metformin 1,000 mg PO AMPM 06/03/18 06/03/18 History Patient History Medical History Diabetes (Chronic) H/O: hysterectomy (Resolved) Family History Mother Heart attack Social History Current Living Situation: Spouse Other Information That Helps Us Care for You: No Feels Safe at Home: Yes Safety Concerns: Feels Safe At This Time Smoking Status: Never smoker Do You Dip or Chew Tobacco: No Hx Alcohol Use: No Hx Substance Use: No Beliefs That Will Affect Care: None Preferred Language: Azeri Communication Ability: Effective Continuous Improvement Coach Required: No Review of Systems Pertinent positives and negatives reviewed in HPI--all others negative Physical Exam 2 Vital Signs (Past 24 Hours): Last Vital Signs Temp 36.6 C 06/03/18 20:49 Pulse 97 H 06/03/18 20:49 Resp 17 06/03/18 20:49 BP 123/81 06/03/18 20:49 Pulse Ox 93 06/03/18 20:49 Constitutional: WD/WN, vitals as above Eyes: normal visual sutton by confrontation and + anicteric sclerae Neck: normal visual inspection and trachea midline Respiratory: normal respiratory effort, lungs clear to auscultation Cardiovascular: Rate/Rhythm: regular rate and regular rhythm Gastrointestinal (Abdomen): Inspection/Auscultation: + abdomen distended Percussion/Palpation: abdomen soft; abdomen nontender Musculoskeletal: Head/Neck/Chest: normocephalic and head atraumatic negative for edema, peripheral pulses intact Skin: no rashes, warm and dry Neurologic: awake; not confused Speech / Cognition: normal speech Psychiatric: A+Ox3, euthymic affect Results & Data Diagnostic Findings CXR: neg for acute
[2018-06-04] MEDS: HYDROCODONE/ACETAMOPHEN 5/325MG TAB PO PRN ×2 (00:02→05:38)
[2018-06-04 06:03] LABS: Eosinophils # (auto) 0.02 K/uL (0-0.5); Eosinophils % (auto) 0.2 %; Hematocrit (blood only) 43.7 % (37-47); Hemoglobin 14.7 g/dL (12.0-16.0); Immature Granulocytes # (auto) 0.02 K/uL (0.00-0.02); Immature Granulocytes % (auto) 0.2 %; Lymphocytes # (auto) 1.72 K/uL (1.2-3.4); Lymphocytes % (auto) 17.5 %; Mean Corpuscular Hgb Conc 33.6 g/dL (32-36); Mean Corpuscular Volume 89.2 fL (80-100); Monocytes # (auto) 0.49 K/uL (0.11-0.59); Neutrophils # (auto) 7.56 K/uL (1.4-6.5); Neutrophils % (auto) 77.1 %; Platelet Count 278 K/uL (130-400); RDW Coefficient of Variation 13.2 % (11.5-14.5); RDW Standard Deviation 43.1 fL (36.4-46.3); White Blood Count 9.81 K/uL (4.8-10.8)
[2018-06-04 06:10] LABS: INR 1.1 (0.9-1.1); Prothrombin Time 10.7 Seconds (9.0-12.0)
[2018-06-04] MEDS ORDERED: LEVOTHYROXINE SODIUM 150 MCG TABLET PO SCH (06:30)
[2018-06-04 06:41] LABS: Potassium 4.1 mmol/L (3.5-5.1)
[2018-06-04 06:42] LABS: Albumin Level 3.5 gm/dl (3.4-5.0); BUN Creatinine Ratio 13.5 (10-20); Bilirubin Direct 0.2 mg/dl (0-0.2); Calcium 9.2 mg/dl (8.5-10.1); Creatinine Clr Calc Pharmacy 72.8 ml/min; Est GFR (African American) 82.8; Est GFR (Non-African American) 71.4
[2018-06-04 06:51] LABS: Globulin 3.6 gm/dl (2.5-4.0); Phosphorus 3.8 mg/dl (2.5-4.9); Total Protein 7.1 gm/dl (6.4-8.2)
[2018-06-04 07:05] LABS: Estimated Average Glucose 166 mg/dl
--- NOTE | 2018-06-04 07:54 | Anesthesiology Progress Note ---
Date of Service June 04, 2018 Anesthesia Post Procedure Vital Signs Vital Signs: Temp Pulse Pulse Pulse Resp BP BP 06/04/18 07:40 36.7 C 70 16 160/100 H 06/04/18 03:23 36.6 C 89 16 126/79 06/03/18 23:23 36.5 C 88 16 113/71 06/03/18 20:49 36.6 C 97 H 17 123/81 06/03/18 19:45 36.9 C 75 17 141/84 H 06/03/18 18:45 36.6 C 66 18 132/81 06/03/18 18:17 36.5 C 67 17 132/81 06/03/18 17:45 36.5 C 74 16 118/73 06/03/18 17:40 74 18 06/03/18 17:35 73 14 06/03/18 17:30 72 13 151/65 H 06/03/18 17:26 36.5 C 06/03/18 17:25 67 14 06/03/18 17:20 61 14 159/66 H 06/03/18 17:16 61 14 164/66 H 06/03/18 17:15 61 14 06/03/18 17:10 59 L 12 168/70 H 06/03/18 17:06 58 L 15 169/64 H 06/03/18 17:05 58 L 13 06/03/18 17:01 59 L 15 189/71 H 06/03/18 17:00 61 15 06/03/18 16:55 66 21 178/84 H 06/03/18 16:51 66 19 189/80 H 06/03/18 16:50 70 17 06/03/18 16:46 68 18 174/79 H 06/03/18 16:45 65 15 06/03/18 16:40 71 19 164/82 H 06/03/18 16:36 36.6 C 77 77 19 151/77 H 151/77 H 06/03/18 15:12 36.7 C 63 16 109/65 06/03/18 14:50 62 14 131/64 06/03/18 12:15 66 16 144/74 H 06/03/18 11:00 06/03/18 10:04 125/79 06/03/18 09:09 36.4 C L 105 H 18 143/81 H Pulse Ox 06/04/18 07:40 93 06/04/18 03:23 94 06/03/18 23:23 93 06/03/18 20:49 93 06/03/18 19:45 94 06/03/18 18:45 98 06/03/18 18:17 98 06/03/18 17:45 91 06/03/18 17:40 95 06/03/18 17:35 96 06/03/18 17:30 96 06/03/18 17:26 98 06/03/18 17:25 98 06/03/18 17:20 99 06/03/18 17:16 97 06/03/18 17:15 98 06/03/18 17:10 99 06/03/18 17:06 99 06/03/18 17:05 99 06/03/18 17:01 99 06/03/18 17:00 99 06/03/18 16:55 100 06/03/18 16:51 100 06/03/18 16:50 100 06/03/18 16:46 100 06/03/18 16:45 100 06/03/18 16:40 100 06/03/18 16:36 99 06/03/18 15:12 95 06/03/18 14:50 96 06/03/18 12:15 97 06/03/18 11:00 97 06/03/18 10:04 06/03/18 09:09 98 Pain Intensity Medial Midsternal: Pain Intensity: 6 Upper Anterior Abdomen: Pain Intensity: 1 Abdomen: Pain Intensity: 2 Notes Mental Status: alert / awake / arousable and participated in evaluation Patient Amnestic to Procedure: Yes Nausea / Vomiting: adequately controlled Pain: adequately controlled Airway Patency, RR, SpO2: stable & adequate BP & HR: stable & adequate Hydration State: stable & adequate Anesthetic Complications: no major complications apparent and Pt Satisfied with anesthetic care
[2018-06-04] MEDS ORDERED: PNEUMOCOCCAL ADMINISTRATION CHARGE ONE (08:00)
[2018-06-04] MEDS ORDERED: PNEUMOCOCCAL POLYSACCHARIDES 25 MCG/0.5 ML VIAL/SYR IM ONE (08:00)
[2018-06-04] MEDS: INSULIN ASPART 100 UNITS/ML 3 ML PEN SC SCH (08:57)
[2018-06-04] MEDS ORDERED: dilTIAZem HCL 240 MG CAPCR PO SCH (09:00)
[2018-06-04] MEDS ORDERED: HEPARIN SOD 5,000 UNIT/0.5 ML VIAL SQ SCH (09:00)
[2018-06-04] MEDS: SODIUM CHLORIDE 0.9% 1000ML 1,000 ML IV SCH (09:02)
--- NOTE | 2018-06-04 09:50 | Discharge Summary ---
PRINCIPAL DIAGNOSIS: Acute and chronic cholecystitis. PROCEDURES: The patient underwent laparoscopic cholecystectomy. HISTORY OF PRESENT ILLNESS: The patient is a 72-year-old female presented to the Emergency Room with persistent upper abdominal pain and nausea consistent with biliary colic. HOSPITAL COURSE: The patient was taken to the operating room where she underwent laparoscopic cholecystectomy. Her gallbladder was severely distended. She had evidence of chronic disease with scar tissue at the francisca hepatis and mild acute inflammation. It was evident that her gallbladder was obstructed. She has done well from the operation and was felt stable for discharge home today to be followed in the surgical clinic within 1-2 weeks.
== END 2018-06-04 11:06 | disposition home or self-care (01) ==
LOC: ED 09:07 → 3N 14:54 → SURCTR 14:54